=== PATIENT | male | born 1970 | race Caucasian/White ===

== ENCOUNTER 2020-05-21 07:04 | Day surgery (SDC) | payer OTHER ==
[~2020-05-21 07:04] MED LIST: EPINEPHrine 1 MG/ML 30 ML MDV IRR SCH; Lactated Ringers 1,000 ML IV SCH; Lidocaine 1% 4 ML ONE; Lidocaine 1%/Sod Bicarbonate in NS 8.4% 1 ML Syringe IDERM PRN; Midazolam 1 MG/ML 2 ML SDV ONE; Propofol 200 MG/20 ML SDV ONE; Sodium Chloride 0.9% 10 ML Syringe FLUSH PRN; fentaNYL 250 MCG/5 ML SDV ONE
--- NOTE | 2020-05-21 07:21 | PCM.PREANE ---
Preanesthetic Assessment - Anesthesia/Transfusion/Family Hx Anesthesia History: Prior Anesthesia Without Reaction Family History of Anesthesia Reaction: No Transfusion History: No Prior Transfusion(s) - Review of Systems General: No Symptoms Pulmonary: No Symptoms Cardiovascular: No Symptoms Gastrointestinal: No Symptoms Neurological: No Symptoms Other: Reports: None - Physical Assessment NPO Status Date: 05/20/20 NPO Status Time: 19:30 ASA Class: 2 Mental Status: Alert & Oriented x3 Airway Class: Mallampati = 2 Dentition: Reports: Normal Dentition Thyro-Mental Finger Breadths: 3 Mouth Opening Finger Breadths: 3 ROM/Head Extension: Full Lungs: Clear to Auscultation, Normal Respiratory Effort - Allergies Allergies/Adverse Reactions: Allergies Allergy/AdvReac Type Severity Reaction Status Date / Time Penicillins Allergy Airway Verified 05/20/20 13:01 Tightness - Acknowledgements Anesthesia Type Planned: General Anesthesia Pt an Appropriate Candidate for the Planned Anesthesia: Yes Alternatives and Risks of Anesthesia Discussed w Pt/Guardian: Yes Pt/Guardian Understands and Agrees with Anesthesia Plan: Yes PreAnesthesia Questionnaire HEENT History: Reports: Impaired Vision, Other (See Below) Other HEENT History: TMJ disorder Cardiovascular History: Reports: High Cholesterol Respiratory History: Reports: None Gastrointestinal History: Reports: None Genitourinary History: Reports: None FIELD AUDITOR History: Reports: None Musculoskeletal History: Reports: Other (See Below) (cervical spine fusion c6-7 FROM noted) Other Musculoskeletal History: left knee pain Neurological History: Reports: None Psychiatric History: Reports: None Endocrine/Metabolic History: Reports: None Hematologic History: Reports: None Immunologic History: Reports: None Oncologic (Cancer) History: Reports: None Dermatologic History: Reports: None - Infectious Disease History Infectious Disease History: Reports: Novel Coronavirus, Other (See Below) Other Infectious Disease History: covid 04/24/20 - Past Surgical History Head Surgeries/Procedures: Reports: None Cardiovascular Surgical History: Reports: None Respiratory Surgical History: Reports: None GI Surgical History: Reports: None Female Surgical History: Reports: None Male Surgical History: Reports: None Endocrine Surgical History: Reports: None Neurological Surgical History: Reports: C-Spine Musculoskeletal Surgical History: Reports: None, Shoulder Surgery Oncologic Surgical History: Reports: None Dermatological Surgical History: Reports: None - SUBSTANCE USE Tobacco Use Status *Q: Never Tobacco User Recreational Drug Use History: No - HOME MEDS Home Medications: Home Meds Acetaminophen/HYDROcodone [[place] 325-5 MG] 1 - 2 tab PO Q6H PRN #20 tablet 05/21/20 [Rx] Aspirin [Aspirin EC] 325 mg PO BID #84 tab 05/21/20 [Rx] - CURRENT (IN HOUSE) MEDS Current Meds: Current Medications Epinephrine HCl (Adrenalin) 3 mg IRR ONETIME EFRAIN Stop: 05/21/20 23:00 Lactated Ringer's (Ringers, Lactated) 1,000 mls @ 125 mls/hr IV ASDIRECTED ERFAIN Stop: 05/21/20 23:00 Lidocaine/Sodium Bicarbonate (Buffered Lidocaine 1% In Ns 8.4%) 0.25 ml IDERM ONETIME PRN PRN Reason: Prior to IV Start Stop: 05/21/20 18:00 Sodium Chloride (Saline Flush) 10 ml FLUSH ASDIRECTED PRN PRN Reason: Keep Vein Open Stop: 05/21/20 18:00 Discontinued Medications Fentanyl (Sublimaze) Confirm Administered Dose 250 mcg .ROUTE .STK-MED ONE Stop: 05/21/20 07:02 Lidocaine HCl (Xylocaine-Mpf 1%) Confirm Administered Dose 4 mls @ as directed .ROUTE .STK-MED ONE Stop: 05/21/20 07:02 Midazolam HCl (Versed 1 Mg/Ml) Confirm Administered Dose 2 mg .ROUTE .STK-MED ONE Stop: 05/21/20 07:02 Propofol (Diprivan 20 Ml) Confirm Administered Dose 200 mg .ROUTE .STK-MED ONE Stop: 05/21/20 07:01
[2020-05-21] MEDS ORDERED: ceFAZolin 1 GM Vial ONE (07:27)
[2020-05-21] MEDS ORDERED: Bupivacaine 0.25% 10 ML SDV ONE (07:36)
[2020-05-21] MEDS ORDERED: Ketorolac 30 MG/ML SDV ONE (08:49)
[2020-05-21] MEDS ORDERED: Ondansetron 4 MG/2 ML SDV ONE (08:49)
--- NOTE | 2020-05-21 09:12 | PCM.POSTAN ---
POST ANESTHESIA ASSESSMENT - MENTAL STATUS Mental Status: Alert, Oriented - VITAL SIGNS Vital Signs: Last Vital Signs Temp 36.0 C L 05/21/20 07:20 Pulse 60 05/21/20 07:20 Resp 14 05/21/20 07:20 BP 113/68 05/21/20 07:20 Pulse Ox 95 05/21/20 07:20 - RESPIRATORY Respiratory Status: Respiratory Rate WNL, Airway Patent, O2 Saturation Stable - CARDIOVASCULAR CV Status: Pulse Rate WNL, Blood Pressure Stable - GASTROINTESTINAL GI Status: No Symptoms - PAIN Pain Score: 0 - POST OP HYDRATION Hydration Status: Adequate & Stable
[2020-05-21] MEDS ORDERED: Ondansetron 4 MG/2 ML SDV IVPUSH PRN (09:15)
[2020-05-21] MEDS ORDERED: fentaNYL 100 MCG/2 ML SDV IVPUSH PRN ×2 (09:16→09:18)
[2020-05-21] MEDS ORDERED: HYDROmorphone 0.5 MG/0.5 ML Syringe IVPUSH PRN (09:18)
--- NOTE | 2020-05-21 09:46 | PCM48HPAN ---
Post Anesthesia Note - EVALUATION WITHIN 48HRS OF ANESTHETIC Vital Signs in Normal Range: Yes Patient Participated in Evaluation: Yes Respiratory Function Stable: Yes Airway Patent: Yes Cardiovascular Function Stable: Yes Hydration Status Stable: Yes Pain Control Satisfactory: Yes Nausea and Vomiting Control Satisfactory: Yes Mental Status Recovered: Yes Vital Signs: Last Vital Signs Temp 36.3 C 05/21/20 09:45 Pulse 60 05/21/20 07:20 Resp 10 L 05/21/20 09:45 BP 107/63 05/21/20 09:45 Pulse Ox 95 05/21/20 09:45
--- NOTE | 2020-05-21 11:35 | PCM.OPNOTE ---
- General Post-Op/Procedure Note Date of Surgery/Procedure: 05/21/20 Operative Procedure(s): left knee video arthroscopy with partial medial meniscectomy and partialy synovectomy Pre Op Diagnosis: left knee medial meniscus tear Post-Op Diagnosis: same with plica and fat pad impingement Anesthesia Technique: General LMA, Local Primary Surgeon: Hung Mchugh Anesthesia Provider: Mary Mcintosh Greens Planter: Jacquie Zacarias EBL in mLs: 5 Complications: None Condition: Good Free Text/Narrative:: Intake & Output 05/20/20 05/21/20 05/21/20 22:59 06:59 14:59 Intake Total 480 Balance 480
--- NOTE | 2020-05-31 14:26 | OR ---
DATE OF OPERATION: 05/21/2020 SURGEON: Hung Mchugh MD OPERATION PERFORMED: Left knee video arthroscopy with partial medial meniscectomy and partial synovectomy. PREOPERATIVE DIAGNOSIS: Left knee medial meniscus tear. POSTOPERATIVE DIAGNOSIS: Left knee medial meniscus tear with fat pad and plica impingement. ANESTHESIA: General LMA with local. ANESTHESIA PROVIDER: Mary Mcintosh CRNA. FILM PROCESSING SUPERVISOR: Jacquie Zacarias PA-C. ESTIMATED BLOOD LOSS: 5 mL. COMPLICATIONS: None. CONDITION: Stable. DESCRIPTION OF PROCEDURE: The patient was identified in the preoperative holding area. Proper site was marked and identified by the surgeon. The patient was taken back to the operative theater, where after adequate anesthesia, the patient's right lower extremity was placed in a well leg rolle. Left lower extremity had a nonsterile tourniquet applied and was then placed in a C-clamp rolle. Foot of the bed was then lowered. Left lower extremity was then sterilely prepped and draped in the usual sterile fashion. OR time-out was performed. The patient received 2 g IV Ancef. Left lower extremity was then exsanguinated. Tourniquet was insufflated to 250 mmHg. Standard anterior lateral portal incision was made. Scope trocar was introduced. The patient had only grade 1 chondromalacia of patellofemoral joint. He was noted to have large amount of fat pad impingement as well as erythema in the fat pad and plica. Attention was turned to medial compartment. Anteromedial portal was created with the use of a spinal needle. The patient was noted to have a significant tear of the medial meniscus with unstable portion of the posterior third. A partial medial meniscectomy of roughly 50% of the posterior third horn of the medial meniscus was then undertaken, especially with the undersurface flap that was unstable. It was taken back to a stable rim. The patient was noted to have very little chondromalacia of the medial compartment. The ACL was intact to the notch. Lateral compartment showed no chondromalacia changes. At this time, a partial synovectomy was performed of the fat pad back to a stable rim after removing all synovitis as well as the medial plica. Excess saline was drained from the knee. 3-0 nylon suture was used for closure of the skin. The patient had sterile soft dressing applied and was sent to PACU in stable condition. MMODAL /[id number]
== END 2020-05-21 10:38 | disposition home or self-care (01) ==
LOC: JD.SDS 07:04
PROVIDERS: ATTEND Orthopaedic Surgery
DX: S83.242A Other tear of medial meniscus, current injury, left knee, initial encounter (principal); M94.262 Chondromalacia, left knee; M65.862 Other synovitis and tenosynovitis, left lower leg; M25.862 Other specified joint disorders, left knee; G89.29 Other chronic pain; Z79.899 Other long term (current) drug therapy; Z88.0 Allergy status to penicillin; Z98.890 Other specified postprocedural states; Z86.16 Personal history of COVID-19
CPT/HCPCS: 01400; J0690; J1885; J2250; J2405; J2704; J3010; J3490; J7120

== ENCOUNTER 2022-11-01 05:46 | Emergency (ER) | payer OTHER ==
[2022-11-01] MEDS ORDERED: Fluorescein 1 MG Ophth Strip EYELF ONE (06:19)
== END 2022-11-01 06:50 | disposition home or self-care (01) ==
LOC: JD.ED 05:46
DX: H57.9 Unspecified disorder of eye and adnexa (principal); Z88.0 Allergy status to penicillin
CPT/HCPCS: 99282; 99283